=== PATIENT | male | born 1945 | race Caucasian/White ===

== ENCOUNTER 2024-06-19 11:54 | Emergency (ER) | payer OTHER ==
[2024-06-19] MEDS ORDERED: CEFTRIAXONE 2000 MG/VIAL ONE (12:26)
[2024-06-19] MEDS ORDERED: PANTOPRAZOLE 40 MG INJ ONE (12:26)
[2024-06-19] MEDS ORDERED: ONDANSETRON 4 MG/2 ML VIAL ONE (12:26)
[2024-06-19] MEDS ORDERED: FAMOTIDINE 20 MG/2 ML VIAL IV ONE (12:27)
[2024-06-19] MEDS ORDERED: OCTREOTIDE ACETATE 100 MCG/ML ONE (12:27)
[2024-06-19] MEDS ORDERED: NA CHLORIDE 0.9% 1,000 ML ONE ×2 (12:28→13:15)
[2024-06-19] MEDS ORDERED: NA CHLORIDE 0.9% 100 ML ONE (12:28)
[2024-06-19 12:34] LABS: Absolute Lymphocytes (CBC) 0.7 K/uL (0.7-4.9); Absolute Monocytes 1.4 K/uL (0.1-1.3); Absolute Neutrophil 13.9 K/uL (1.8-8.0); Basophils % 0.1 % (0-1.3); Hematocrit 35.5 % (39.6-49.0); Hemoglobin 11.6 g/dL (13.6-17.9); Lymphocytes % 4.3 % (15.3-44.8); MCH 34.8 pg (27.0-35.0); MCHC 32.8 g/dL (32.0-36.0); MCV 105.8 fL (80-100); MPV 9.3 fL (7.6-11.3); Neutrophils % 86.6 % (41.7-73.7); Platelets 112 thou/uL (152-406); RBC Red Blood Cell Count 3.35 M/uL (4.33-5.43); Red Cell Distribution Width 14.3 % (12.1-15.2)
[2024-06-19 12:42] LABS: PT Prothrombin Time 18.4 SECONDS (9.4-12.5); PTT, Activated Partial Thromb 38.3 SECONDS (24.3-36.9); Protime INR 1.67
--- NOTE | 2024-06-19 12:53 | RAD REPORT ---
EXAM DESCRIPTION: CT - Abdomen Pelvis Wo Contrast - 06/19/2024 12:45 pm CLINICAL HISTORY: Abdominal pain. ABD PAIN COMPARISON: Angio Aorta For Dissection dated 06/23/2017 TECHNIQUE: CT imaging of the abdomen and pelvis was performed without contrast. Solid organ, bowel a nd vascular assessment is limited due to lack of IV and oral contrast. All CT scans are performed using dose optimization technique as appropriate and may include automated exposure control or mA/KV adjustment according to patient size. FINDINGS: Small left pleural effusion.Esophageal varices noted. The liver is quite small in size with nodular contour compatible with cirrhosis. Cholelithiasis.The s pleen is normal in size. Both adrenal glands and kidneys are within normal limits. Moderate ascites. No bowel obstruction or free air is seen. Nonvisualized appendix. The osseous structures are within normal limits. IMPRESSION: Advanced liver cirrhosis with a shrunken nodular liver noted. Moderate ascites. A limited non-contrast examination was performed as detailed.
[2024-06-19 12:56] LABS: Band Neutrophils 5 % (0-1); Blood Morphology Comment NOTED (NOT SEEN); Differential Total Cells Count 100; Lymphocytes 6 % (15-42); Macrocytosis 1+; Monocytes 4 % (0-10); Platelet Estimate DECR; Segmented Neutrophils 85 % (40-80); Toxic Granulation 1+; White Blood Cell Scan OK (OK)
[2024-06-19] MEDS ORDERED: METRONIDAZOLE 500mg IVPB 500 MG/100 ML BAG IV ONE (13:01)
[2024-06-19 13:03] LABS: Albumin 2.2 g/dL (3.4-5.0); Albumin/Globulin Ratio 0.8 (1.1-1.8); Anion Gap 16.1 mEq/L (5.0-15.0); Bilirubin Total 7.5 mg/dL (0.2-1.0); Globulin 2.8 g/dL (2.3-3.5); Potassium 5.1 mEq/L (3.5-5.1)
[2024-06-19 13:06] LABS: Troponin High Sensitivity 74.5 pg/mL (<58.9)
--- NOTE | 2024-06-19 13:39 | ER ---
Nurse's Notes [facility] Name: Ambrocio Costello Age: 78 yrs Sex: Male : 1945 Arrival Date: 06/19/2024 Time: 11:54 Bed 4 Private MD: Diagnosis: Severe sepsis with septic shock;Upper GI bleed Presentation: 06/19 12:16 Chief complaint: EMS states: patient started not feeling well last night, experiencing tm6 n/v/d with black stools and black vomit. Upon EMS arrival, HR 120 and BP 90/50. 4mg zofran given IV. Coronavirus screen: Vaccine status: Patient reports receiving the 2nd dose of the covid vaccine. Ebola Screen: Patient negative for fever greater than or equal to 101.5 degrees Fahrenheit, and additional compatible Ebola Virus Disease symptoms Patient denies exposure to infectious person. Patient denies travel to an Ebola-affected area in the 21 days before illness onset. No symptoms or risks identified at this time. Initial Sepsis Screen: Does the patient meet any 2 criteria? RR > 20 per min. HR > 90 bpm. Yes Does the patient have a suspected source of infection? No. Patient's initial sepsis screen is negative. Risk Assessment: Do you want to hurt yourself or someone else? Patient reports no desire to harm self or others. Onset of symptoms was June 18, 2024. Care prior to arrival: Medication(s) given: zofran 4 mg. 12:16 Method Of Arrival: EMS: [facility] tm6 12:16 Acuity: AMISHA 3 tm6 12:29 Acuity: AMISHA 2 mb9 Triage Assessment: 12:18 General: Appears uncomfortable, ill, Behavior is cooperative. Pain: Denies pain. EENT: tm6 No signs and/or symptoms were reported regarding the EENT system. Neuro: Level of Consciousness is awake, alert, obeys commands, Oriented to person, place, time, situation. Cardiovascular: Patient's skin is warm and dry. Rhythm is sinus tachycardia. Respiratory: Airway is patent Respiratory effort is labored, Respiratory pattern is tachypnea. GI: Reports diarrhea, bloody stool, nausea, vomiting, black emesis. Patient reports black stools. : No signs and/or symptoms were reported regarding the genitourinary system. Derm: No signs and/or symptoms reported regarding the dermatologic system. Musculoskeletal: No signs and/or symptoms reported regarding the musculoskeletal system. Historical: - Allergies: 12:18 PENICILLINS; tm6 - PMHx: 12:18 Gout; liver failure (Gout); kidney failure (Gout); tm6 - PSHx: 12:18 None; tm6 - Immunization history:: Client reports receiving the 2nd dose of the Covid vaccine. - Infectious Disease History:: Denies. - Social history:: Smoking status: Patient denies any tobacco usage or history of. Patient/guardian denies using alcohol. - Family history:: not pertinent. Screenin:31 [facility] ED Fall Risk Assessment (Adult) History of falling in the last 3 months, mb9 including since admission No falls in past 3 months (0 pts) Confusion or Disorientation No (0 pts) Intoxicated or Sedated No (0 pts) Impaired Gait No (0 pts) Mobility Assist Device Used No (0 pt) Altered Elimination No (0 pt) Score/Fall Risk Level 0 - 2 = Low Risk Oriented to surroundings, Maintained a safe environment, Educated pt \T\ family on fall prevention, incl call for assistance when getting out of bed. Abuse screen: Denies threats or abuse. Nutritional screening: No deficits noted. Tuberculosis screening: No symptoms or risk factors identified. Assessment: 12:31 General: Appears uncomfortable, ill, Behavior is cooperative. Pain: Complains of pain mb9 in abdomen Pain does not radiate. Quality of pain is described as throbbing. Neuro: Moreno Agitation-Sedation Scale (RASS): 0 - Alert and Calm Level of Consciousness is awake, alert, obeys commands, Oriented to person, place, time, situation, Appropriate for age. Cardiovascular: Heart tones S1 S2 present Patient's skin is warm and dry. Rhythm is sinus tachycardia. Respiratory: Airway is patent Respiratory effort is even, unlabored, Respiratory pattern is regular, symmetrical, Breath sounds are clear bilaterally. GI: Abdomen is round distended, Bowel sounds present X 4 quads. Abd is soft and non tender X 4 quads. Reports bloody stool, vomiting, black. : No signs and/or symptoms were reported regarding the genitourinary system. EENT: No signs and/or symptoms were reported regarding the EENT system. Derm: Skin is pink, warm \T\ dry. Musculoskeletal: Range of motion: intact in all extremities. 12:53 GI: Pt is actively vomiting black emesis. mb9 13:15 Reassessment: No changes from previously documented assessment. Patient and/or family mb9 updated on plan of care and expected duration. Pain level reassessed. Patient is alert, oriented x 3, equal unlabored respirations, skin warm/dry/pink. 14:05 Reassessment: Patient appears in no apparent distress at this time. No changes from mb9 previously documented assessment. Patient and/or family updated on plan of care and expected duration. Pain level reassessed. Patient is alert, oriented x 3, equal unlabored respirations, skin warm/dry/pink. 14:33 Reassessment: No changes from previously documented assessment. Patient and/or family mb9 updated on plan of care and expected duration. Pain level reassessed. Patient is alert, oriented x 3, equal unlabored respirations, skin warm/dry/pink. Vital Signs: 12:16 BP 100 / 54; Pulse 116; Resp 32; Pulse Ox 96% on R/A; Weight 125.19 kg; Height 5 ft. 11 tm6 in. ; Pain 0/10; 12:30 Temp 102.2(O); mb9 12:53 BP 121 / 52; Pulse 110; Resp 28; Pulse Ox 95% on R/A; mb9 13:10 BP 97 / 47; Pulse 110; Resp 24; Temp 98.2(O); Pulse Ox 95% on R/A; mb9 13:26 BP 109 / 54; Pulse 106; Resp 18; Pulse Ox 97% on R/A; mb9 13:46 BP 104 / 59; Pulse 103; Resp 18; Pulse Ox 97% on R/A; mb9 14:33 BP 110 / 68; Pulse 105; Resp 18; Pulse Ox 100% on R/A; mb9 12:16 Body Mass Index 38.49 (125.19 kg, 180.34 cm) tm6 12:16 Pain Scale: Adult tm6 ED Course: 12:03 Patient arrived in ED. tm6 12:06 Hans Douglas MD is Attending Physician. rt 12:06 Laura Keene RN is Primary Nurse. mb9 12:15 Inserted saline lock: 18 gauge in right antecubital area, using aseptic technique. mb9 Blood collected. Flushed with 10 mL NS. 12:18 Triage completed. tm6 12:18 Arm band placed on right wrist. tm6 12:21 EKG done, by ED staff, reviewed by Hans Douglas MD. tm6 12:30 Maintain EMS IV. Dressing intact. Good blood return noted. Site clean \T\ dry. Gauge \T\ mb 9 site: 18 g left AC. 12:31 Placed in gown. Bed in low position. Call light in reach. Side rails up X 1. Provided mb9 Education on: press call light if needing anything. Client placed on continuous cardiac and pulse oximetry monitoring. NIBP monitoring applied. color television console monitor on. 12:[address] via stretcher. mb9 12:47 CT Abd/Pelvis - Without Contrast In Process Unspecified. EDMS 13:06 Notified ED physician of a critical lab result(s). Troponin of 74.5. mb9 13:21 Initiated transfer with Agata dry transfer man from [facility]. jr12 13:34 Agata the dry transfer man from [facility] returned call to initiate jr12 Doc to Doc with Dr. Douglas and Dr. Dakotah Harrison. 13:50 received acceptance with agata cochran [facility] for bed 7212. jr12 14:05 No provider procedures requiring assistance completed. Patient transferred, IV remains mb9 in place. 14:10 Charly with [facility] given ETA of 30 minutes. jr12 14:24 Chest Single View XRAY In Process Unspecified. EDMS Administered Medications: 12:40 Drug: Ondansetron IVP 8 mg IVP once; over 2 minutes Route: IVP; Site: right antecubital;mb9 13:18 Follow up: Response: No adverse reaction mb9 12:40 Drug: NS 0.9% IV 1000 ml IV at 1 bolus Per protocol; 1000 mL bolus Route: IV; Rate: 1 mb9 bolus; Site: right antecubital; 13:45 Follow up: Response: No adverse reaction; IV Status: Completed infusion mb9 12:45 Drug: Pantoprazole IVP 80 mg IVP once Route: IVP; Site: right antecubital; mb9 13:18 Follow up: Response: No adverse reaction mb9 12:48 Drug: Famotidine IVP 20 mg IVP once; dilute with 10 mL 0.9% NaCl; give over 2 minutes mb9 Route: IVP; Site: right antecubital; 13:18 Follow up: Response: No adverse reaction mb9 12:50 Drug: Octreotide IV 50 mcg IV at calculated rate once Route: IV; Rate: calculated rate; mb9 Site: right antecubital; 13:19 Follow up: Response: No adverse reaction; IV Status: Completed infusion mb9 12:54 Drug: Rocephin - Rocephin (cefTRIAXone) IVPB 2 grams IVPB once over 30 mins; (mix in mb9 100 mL NS) Route: IVPB; Infused Over: 30 mins; Site: left antecubital; 13:18 Follow up: Response: No adverse reaction; IV Status: Completed infusion mb9 13:03 Drug: metroNIDAZOLE IVPB 500 mg 100 ml IVPB at 200 ml/hr once over 30 mins Volume: 100 mb9 ml; Route: IVPB; Rate: 200 ml/hr; Infused Over: 30 mins; Site: left antecubital; 13:45 Follow up: Response: No adverse reaction; IV Status: Completed infusion mb9 13:18 Drug: NS 0.9% IV 2000 ml IV at 1 bolus Per protocol; 1000 mL bolus Route: IV; Rate: 1 mb9 bolus; Site: left antecubital; 14:00 Follow up: Response: No adverse reaction; IV Status: Infusion continued upon transfer mb9 13:45 Drug: Octreotide Infusion (50 mcg/hr) - (Octreotide IV 500 mcg, NS 0.9% IV 500 ml) IV mb9 at 50 ml/hr continuous Route: IV; Rate: 50 ml/hr; Site: right antecubital; 14:00 Follow up: Response: No adverse reaction; IV Status: Infusion continued upon transfer mb9 Medication: 12:31 VIS not applicable for this client. mb9 Outcome: 13:38 ER care complete, transfer ordered by . rt 14:05 Transferred by ground EMS to [facility], Transfer form completed. mb9 X-rays sent w/ patient. 14:05 Condition: stable 14:05 Instructed on the need for transfer, 14:44 Patient left the ED. mb9 Signatures: Dispatcher [employer] Laura Camacho RN RN mb9 Hans Douglas MD MD rt Josephine Cheng [facility] Dale, Tawney, RN RN tm6 Corrections: (The following items were deleted from the chart) 13:18 13:10 BP 97 / 47; Pulse 110bpm; Resp 24bpm; Pulse Ox 95% RA; mb9 mb9
--- NOTE | 2024-06-19 13:39 | EDPHYS ---
Physician Documentation [facility] Name: Ambrocio Costello Age: 78 yrs Sex: Male : 1945 Arrival Date: 06/19/2024 Time: 11:54 Bed 4 Private MD: ED Physician Hans Douglas HPI: 06/19 13:23 This 78 yrs old Male presents to ER via EMS with complaints of Nausea/Vomiting/Diarrhea.rt 13:23 Patient presents to the ED with vomiting, diarrhea since last night. Patient was rt reportedly having melanic stools, blood in the vomit. Began to feel weaker and weaker. Denies other acute complaints at this time, symptoms are severe in severity, no other aggravating or alleviating factors.. Historical: - Allergies: 12:18 PENICILLINS; tm6 - PMHx: 12:18 Gout; liver failure (Gout); kidney failure (Gout); tm6 - PSHx: 12:18 None; tm6 - Immunization history:: Client reports receiving the 2nd dose of the Covid vaccine. - Infectious Disease History:: Denies. - Social history:: Smoking status: Patient denies any tobacco usage or history of. Patient/guardian denies using alcohol. - Family history:: not pertinent. ROS: 13:23 Cardiovascular: Negative for chest pain, palpitations, and edema, Respiratory: Negative rt for shortness of breath, cough, wheezing, and pleuritic chest pain, MS/Extremity: Negative for injury and deformity, Skin: Negative for injury, rash, and discoloration, 13:23 Constitutional: Positive for fever, malaise, 13:23 Abdomen/GI: Positive for abdominal pain, nausea, vomiting, and diarrhea, hematemesis, black/tarry stool, Exam: 13:23 Chest/axilla: Normal chest wall appearance and motion. Nontender with no deformity. rt No lesions are appreciated. Cardiovascular: Regular rate and rhythm with a normal S1 and S2. No gallops, murmurs, or rubs. Normal PMI, no JVD. No pulse deficits. Respiratory: Lungs have equal breath sounds bilaterally, clear to auscultation and percussion. No rales, rhonchi or wheezes noted. No increased work of breathing, no retractions or nasal flaring. Skin: Warm, dry with normal turgor. Normal color with no rashes, no lesions, and no evidence of cellulitis. MS/ Extremity: Pulses equal, no cyanosis. Neurovascular intact. Full, normal range of motion. 13:23 Constitutional: The patient appears Ill-appearing 13:23 ECG was reviewed by the Attending Physician. 13:23 Abdomen/GI: Distended abdomen, no tenderness, Vital Signs: 12:16 BP 100 / 54; Pulse 116; Resp 32; Pulse Ox 96% on R/A; Weight 125.19 kg; Height 5 ft. 11 tm6 in. ; Pain 0/10; 12:30 Temp 102.2(O); mb9 12:53 BP 121 / 52; Pulse 110; Resp 28; Pulse Ox 95% on R/A; mb9 13:10 BP 97 / 47; Pulse 110; Resp 24; Temp 98.2(O); Pulse Ox 95% on R/A; mb9 13:26 BP 109 / 54; Pulse 106; Resp 18; Pulse Ox 97% on R/A; mb9 13:46 BP 104 / 59; Pulse 103; Resp 18; Pulse Ox 97% on R/A; mb9 14:33 BP 110 / 68; Pulse 105; Resp 18; Pulse Ox 100% on R/A; mb9 12:16 Body Mass Index 38.49 (125.19 kg, 180.34 cm) tm6 12:16 Pain Scale: Adult tm6 MDM: 12:09 Patient medically screened. rt 13:38 Differential diagnosis: Bleeding ulcer, bleeding varix, septic shock. Data reviewed: rt vital signs, nurses notes, lab test result(s), EKG, radiologic studies. Consideration of Admission/Observation Patient requires transfer for higher level of care. Management of patient was discussed with the following: Farmworker [employer]: Discussed with accepting bundle helper at [facility]. I considered the following discharge prescriptions or medication management in the emergency department Medications were administered in the Emergency Department. See MAR. Independent interpretation of the following test(s) in the Emergency Department CT Scan: My interpretation is No bowel obstruction seen on interpretation of CT scan images. Care significantly affected by the following chronic conditions: CLD, CKD. Counseling: I had a detailed discussion with the patient and/or guardian regarding the historical points, exam findings, and any diagnostic results supporting the discharge/admit diagnosis, lab results, radiology results, the need to transfer to another facility. Response to treatment: the patient's symptoms have markedly improved after treatment. 13:38 Post IV fluid administration reassessment for Sepsis: Client prescribed 30 mL/kg IVF. rt Sepsis focused reassessment complete. Focused assessment performed: June 19, 2024 at 13:39 Heart: Regular rate/rhythm. Lungs: noted to be clear bilaterally. Neuro: Patient's neurological exam has improved from previous exam. Cardio: Cardiovascular exam improved from previous exam. Heart rate and blood pressure have improved. Respiratory: Respiratory exam improved from previous exam. 17:35 ED course: Patient meets septic shock criteria, however, he is obese, after 3 L of rt fluid, was improving, respiratory status remained intact on reassessment, EMS will give another liter of fluid en route, will not delay transfer for further fluid resuscitation.. 06/19 12:15 Order name: Blood Culture Adult (2) rt 06/19 12:15 Order name: CBC with Diff; Complete Time: 12:57 rt 06/19 12:15 Order name: CMP; Complete Time: 13:12 rt 06/19 12:15 Order name: Lactate w/ 2H reflex if indic.; Complete Time: 13:12 rt 06/19 12:15 Order name: Protime (+inr); Complete Time: 12:57 rt 06/19 12:15 Order name: Ptt, Activated; Complete Time: 12:57 rt 06/19 12:15 Order name: Type And Screen; Complete Time: 13:14 rt 06/19 12:15 Order name: Troponin High Sensitivity; Complete Time: 13:12 rt 06/19 12:37 Order name: CBC Smear Scan; Complete Time: 12:57 EDMS 06/19 12:56 Order name: Manual Differential; Complete Time: 12:57 EDMS 06/19 12:15 Order name: Chest Single View XRAY; Complete Time: 14:43 rt 06/19 12:15 Order name: CT Abd/Pelvis - Without Contrast; Complete Time: 12:57 rt 06/19 12:15 Order name: Accucheck; Complete Time: 12:29 rt 06/19 12:15 Order name: Cardiac monitoring; Complete Time: 12:29 rt 06/19 12:15 Order name: EKG - Nurse/Tech; Complete Time: 12:29 rt 06/19 12:15 Order name: IV Saline Lock - Large Bore; Complete Time: 12: rt 06/19 12:15 Order name: Labs collected and sent; Complete Time: : rt 06/19 12:15 Order name: O2 Per Protocol; Complete Time: : rt 06/19 12:15 Order name: O2 Sat Monitoring; Complete Time: : rt 06/19 12:15 Order name: Vital Signs; Complete Time: 12:20 rt EC:23 Rate is 115 beats/min. Rhythm is regular, Sinus tachycardia with No ectopy. QRS [place] is rt Normal. RI interval is normal. QRS interval is normal. QT interval is normal. No Q waves. T waves are Normal. No ST changes noted. Interpreted by me. Administered Medications: 12:40 Drug: Ondansetron IVP 8 mg IVP once; over 2 minutes Route: IVP; Site: right antecubital;mb9 13:18 Follow up: Response: No adverse reaction mb9 12:40 Drug: NS 0.9% IV 1000 ml IV at 1 bolus Per protocol; 1000 mL bolus Route: IV; Rate: 1 mb9 bolus; Site: right antecubital; 13:45 Follow up: Response: No adverse reaction; IV Status: Completed infusion mb9 12:45 Drug: Pantoprazole IVP 80 mg IVP once Route: IVP; Site: right antecubital; mb9 13:18 Follow up: Response: No adverse reaction mb9 12:48 Drug: Famotidine IVP 20 mg IVP once; dilute with 10 mL 0.9% NaCl; give over 2 minutes mb9 Route: IVP; Site: right antecubital; 13:18 Follow up: Response: No adverse reaction mb9 12:50 Drug: Octreotide IV 50 mcg IV at calculated rate once Route: IV; Rate: calculated rate; mb9 Site: right antecubital; 13:19 Follow up: Response: No adverse reaction; IV Status: Completed infusion mb9 12:54 Drug: Rocephin - Rocephin (cefTRIAXone) IVPB 2 grams IVPB once over 30 mins; (mix in mb9 100 mL NS) Route: IVPB; Infused Over: 30 mins; Site: left antecubital; 13:18 Follow up: Response: No adverse reaction; IV Status: Completed infusion mb9 13:03 Drug: metroNIDAZOLE IVPB 500 mg 100 ml IVPB at 200 ml/hr once over 30 mins Volume: 100 mb9 ml; Route: IVPB; Rate: 200 ml/hr; Infused Over: 30 mins; Site: left antecubital; 13:45 Follow up: Response: No adverse reaction; IV Status: Completed infusion mb9 13:18 Drug: NS 0.9% IV 2000 ml IV at 1 bolus Per protocol; 1000 mL bolus Route: IV; Rate: 1 mb9 bolus; Site: left antecubital; 14:00 Follow up: Response: No adverse reaction; IV Status: Infusion continued upon transfer mb9 13:45 Drug: Octreotide Infusion (50 mcg/hr) - (Octreotide IV 500 mcg, NS 0.9% IV 500 ml) IV mb9 at 50 ml/hr continuous Route: IV; Rate: 50 ml/hr; Site: right antecubital; 14:00 Follow up: Response: No adverse reaction; IV Status: Infusion continued upon transfer mb9 Disposition Summary: 06/19/24 13:38 Transfer Ordered Notes: Transfer Location: [facility] rt Reason: Higher level of care rt Condition: Critical rt Problem: new rt Symptoms: have improved rt Accepting Physician: (06/19/24 14:44) mb9 Diagnosis - Severe sepsis with septic shock rt - Upper GI bleed rt Forms: - Medication Reconciliation Form rt - SBAR form rt Critical care time excluding procedures: 13:38 Critical care time: Bedside Care: 40 minutes, Consultation: 10 minutes. Total time: 50 rt minutes Signatures: Dispatcher [employer] EDLaura Townsend RN RN mb9 Hans Douglas MD MD rt Pili Hunter RN RN tm6 Corrections: (The following items were deleted from the chart) 12:16 12:16 BLOOD CULTURE*+BA.LAB.BRZ ordered. EDMS EDMS 12:16 12:16 CBC+H.LAB.BRZ ordered. EDMS EDMS 12:16 12:16 COMPREHENSIVE METABOLIC PANEL+C.LAB.BRZ ordered. EDMS EDMS 12:16 12:16 LACTATE+C.LAB.BRZ ordered. EDMS EDMS 12:16 12:16 PROTIME (+INR)+COAG.LAB.BRZ ordered. EDMS EDMS 12:16 12:16 PTT, ACTIVATED+COAG.LAB.BRZ ordered. EDMS EDMS 12:16 12:16 Urinalysis+U.LAB.BRZ ordered. EDMS EDMS 12:16 12:16 TYPE AND SCREEN+BB.LAB.BRZ ordered. EDMS EDMS 12:16 12:16 Troponin High Sensitivity+C.LAB.BRZ ordered. EDMS EDMS 12:16 12:16 Chest Single View+RAD.RAD.BRZ ordered. EDMS EDMS 12:16 12:16 Abdomen Pelvis Wo Con+CT.RAD.BRZ ordered. EDMS EDMS 14:44 13:38 rt mb9
[2024-06-19] MEDS ORDERED: NA CHLORIDE 0.9% 500 ML ONE (13:41)
[2024-06-19] MEDS ORDERED: OCTREOTIDE ACETATE 500 MCG/ML ONE (13:41)
--- NOTE | 2024-06-19 14:42 | RAD REPORT ---
EXAM DESCRIPTION: RAD - Chest Single View - 06/19/2024 2:22 pm CLINICAL HISTORY: FEVER Chest pain. COMPARISON: Chest Single View dated 06/23/2017; Abdomen Pelvis Wo Contrast dated 06/19/2024 FINDINGS: Portable technique limits examination quality. The lungs are underinflated but grossly clear. The heart is upper limit normal in size. No displaced fractures. IMPRESSION: Mild underinflation of the lungs.
[2024-06-19 15:16] VITALS: TEMP 98.2
[2024-06-19 15:19] VITALS: BP 110/68; O2SAT 100
--- NOTE | 2024-06-20 12:10 | EKG ---
Test Date: 2024-06-19 Test Time: 12:07:05 Package Collector: [place] MEASUREMENT RESULTS: Intervals: Rate: 115 LA: 174 QRSD: 66 QT: 314 QTc: 434 [place]: P: 64 LA: 174 QRS: 87 T: 31 INTERPRETIVE STATEMENTS: Sinus tachycardia Indeterminate axis Inferior infarct, age undetermined Anterolateral infarct, age undetermined Abnormal ECG Compared to ECG 06/23/2017 09:39:25 Indeterminate axis now present Myocardial infarct finding now present Sinus rhythm no longer present Left-axis deviation no longer present Electronically Signed On 06-20-24 12:07:20 CDT by Matthew Meza
== END 2024-06-19 14:44 | disposition short-term general hospital (02) ==
LOC: ER 11:54
DX: K92.0 Hematemesis (principal); R65.21 Severe sepsis with septic shock; K72.90 Hepatic failure, unspecified without coma; N19 Unspecified kidney failure
CPT/HCPCS: 93005; 87040 ×2; 85025; 36415; 86900; 86850; 87205 ×4; 85610; 86901; 83605; 85730; 87077 ×2; 87186 ×2; 84484; 80053; 74176; 71045; 99285; J2354 ×2; J2470; J2405; J0696; J7040; J7030 ×2